=== PATIENT | male | born 1975 ===

== ENCOUNTER 2018-11-20 12:20 | Day surgery (SDC) | payer OTHER ==
[~2018-11-20 12:20] MED LIST: AMITRIPTYLINE H75 MG PO; LAMICTAL200 MG PO; OMEPRAZOLE20 MG PO
--- NOTE | 2018-11-20 14:45 | NUR ---
11/20/18 1444 Sandhya Rodríguez 1441 PATIENT ARRIVES TO PACU AWAKE, DENIES PAIN OR NAUSEA. ROOM AIR SATS >95%.
--- NOTE | 2018-11-22 16:41 | OR ---
[facility] [address] [place], [place] [address] Signed DATE OF OPERATION: 11/20/2018 SURGEON: Adam Hinton MD PREOPERATIVE DIAGNOSIS: Gastroesophageal reflux with history of White esophagus, surveillance upper endoscopy. POSTOPERATIVE DIAGNOSES: 1. Ulcerative distal esophagitis, some changes consistent with White esophagus. 2. Poor flap valve, hiatal hernia. PROCEDURE: Esophagogastroduodenoscopy with biopsy. ANESTHESIA: Intravenous sedation, fentanyl 100 mcg, Versed 5 mg. INDICATION: This 43-year-old white man is a prisoner at [facility] and a patient of GEORGE Alfonso. He is known to have gastroesophageal reflux problems, which were well managed from symptom standpoint with omeprazole 20 mg daily. He is also known to have White's esophagus. He is referred for upper endoscopy to assess for surveillance for his White's esophagus in particular to assess for dysplasia and so on. He understands the risks of upper endoscopy including but not limited to bleeding, infection, and perforation. FINDINGS: There was definite distal esophagitis. It appeared to be ulcerative esophagitis. There were some changes suggestive of White's esophagus, but it was not florid and certainly no sign of associated stricture or neoplasm. There was some antral gastritis and duodenitis even. CLOtest was -15 minutes postprocedure. Biopsies were obtained of the esophagus and elsewhere. DESCRIPTION OF PROCEDURE: The patient was brought to the endoscopy suite, given topical lidocaine spray hypopharyngeal anesthesia and placed in lateral decubitus position. Intravenous sedation was induced with fentanyl and Versed. A bite block was placed. An Olympus video upper endoscope was passed in the hypopharynx. The vocal cords appeared normal. Scope was advanced to the esophagus without problem. Esophagus looked normal except in the distal portion where there was what appeared to be linear ulcerations and some Electronically Signed By: ADAM HINTON MD 11/22/18 1641 PATIENT NAME: ASHA BALDERRAMA OPERATIVE REPORT DATE OF : 79 REPORT #: [id number] PHYSICIAN: ADAM HINTON MD PCP: ISMAEL RIVERA REPORT IS CONFIDENTIAL AND NOT TO BE RELEASED WITHOUT AUTHORIZATION [facility] [address] [place], [place] [address] Signed mucosal changes suggestive of White's esophagus. The scope was passed in the stomach, which is inflated with air. Rugal folds appeared normal. There was some antral gastritis. The pylorus was normal. Scope was passed into the duodenum. Duodenitis was noted of the bulbar portion, but no sign of ulceration. Biopsies were obtained. The 2nd portion appeared reasonably normal. Scope was withdrawn and biopsies taken of the antrum for both KIARA and pathologic testing. Retroflexed view was undertaken showing a completely effaced flap valve and easy examination of the distal esophagus through retroflexed view. The scope was straightened and withdrawn. A biopsy was taken of the distal esophageal mucosa to assess for White epithelium and dysplasia. Withdrawal of scope to the midesophagus allowed for midesophageal biopsies. The scope was carefully withdrawn and ultimately removed. The patient was taken to recovery room in good condition. CONCLUDING DIAGNOSIS: Hiatal hernia with poor flap valve and chronic esophagitis, symptomatically controlled with PPI medication. Possible White's epithelium (biopsied). PLAN: Recommend continued use of Prilosec 20 mg daily. We will see him back in the correction clinic on my next visit and review his pathology reports in outlining plan for surveillance as needed. MD SAMIA Olivares/ANANTHL /[id number] cc: GEORGE Cardenas Copies: ISMAEL RIVERA ~ Electronically Signed By: ADAM HINTON MD 11/22/18 1641 PATIENT NAME: ASHA BALDERRAMA OPERATIVE REPORT DATE OF : 79 REPORT #: [id number] PHYSICIAN: ADAM HINTON MD PCP: ISMAEL RIVERA REPORT IS CONFIDENTIAL AND NOT TO BE RELEASED WITHOUT AUTHORIZATION
--- NOTE | 2018-11-25 10:11 | PATH ---
[facility] [address] [place], [place] [address] Signed SPECIMEN(S): A DUODENAL BIOPSY SPECIMEN(S): B ANTRUM/PYLORUS BIOPSY SPECIMEN(S): C LOWER ESOPHAGEAL BIOPSY SPECIMEN(S): D MID ESOPHAGEAL BIOPSY SPECIMEN SOURCE: A. DUODENAL BIOPSY B. ANTRUM/PYLORUS BIOPSY C. LOWER ESOPHAGEAL BIOPSY D. MID ESOPHAGEAL BIOPSY CLINICAL HISTORY: GERD, White's. Postop: Significant esophagitis,, White's, hiatal hernia MICROSCOPIC DESCRIPTION: Histologic sections of all submitted blocks are examined by light microscopy. These findings, together with the gross examination, support the pathologic diagnosis. FINAL PATHOLOGIC DIAGNOSIS: A. Duodenum, biopsy: - Duodenal mucosa with no histopathologic abnormality. - Normal villous architecture is present. B. Stomach, antrum/pylorus, biopsy: - Oxyntic and antral mucosa with no histopathologic abnormality. - No metaplasia, significant inflammation, or dysplasia identified. - No Helicobacter organisms seen on HE stain. C. Esophagus, lower, biopsy: - White's esophagus. - Squamous epithelium with reactive epithelial changes, consistent with reflux esophagitis. D. Esophagus, mid, biopsy: - Squamous mucosa with mild reactive changes. COMMENT: C) Sections of the lower esophageal biopsy demonstrate fragments of glandular mucosa with focal intestinal metaplasia. No dysplasia or malignancy is seen in any of the specimens. NAL: :cml:C2NR GROSS DESCRIPTION: Four specimens are received in four containers, labeled "RC." PATIENT NAME: ASHA BALDERRAMA PATHOLOGY DATE OF : 79 REPORT #: [id number] PHYSICIAN: HILARY RICH PCP: ISMAEL RIVERA REPORT IS CONFIDENTIAL AND NOT TO BE RELEASED WITHOUT AUTHORIZATION [facility] [address] [place], [place] [address] Signed A. The specimen, labeled "RC, duodenal biopsy," is received in formalin and consists of two reynoso-white soft tissue fragments ranging from 0.3-0.4 cm in greatest dimension. The specimen is entirely submitted in cassette (A1). B. The specimen, labeled "RC, antrum/pylorus biopsy," is received in formalin and consists of two reynoso-white soft tissue fragments ranging from 0.3-0.4 cm in greatest dimension. The specimen is entirely submitted in cassette (B1). C. The specimen, labeled "RC, lower esophagus biopsy," is received in formalin and consists of six reynoso-white soft tissue fragments ranging from 0.2-0.3 cm in greatest dimension. The specimen is entirely submitted in cassette (C1). D. The specimen, labeled "RC, mid esophagus biopsy," is received in formalin and consists of two reynoso-white soft tissue fragments ranging from 0.2-0.3 cm in greatest dimension. The specimen is entirely submitted in cassette (D1). AR (under the direct supervision of a pathologist) The Gross Description was prepared using a voice recognition system. The report was reviewed for accuracy; however, sound-alike word errors, addition and/or deletions may occur. If there is any question about this report, please contact Client Services. PERFORMING LABORATORY: The technical component was performed by [facility], [address] [place] [id number] ([employer]otor[employer] Operator: Anyi Clemente MD; CLIA# [id number]). Professional interpretation was performed by [facility], [facility], later [facility], [address] [place] [id number] (CLIA# [id number]). Diagnostician: Greta Felix MD Pathologist Electronically Signed 11/25/2018 Copies: ~ PATIENT NAME: ASHA BALDERRAMA PATHOLOGY DATE OF : 79 REPORT #: [id number] PHYSICIAN: HILARY RICH PCP: ISMAEL RIVERA REPORT IS CONFIDENTIAL AND NOT TO BE RELEASED WITHOUT AUTHORIZATION
== END 2018-11-20 15:05 | disposition home or self-care (01) ==
LOC: OPS 12:20 → DS 13:00 → OPS 13:00
PROVIDERS: Surgery
PROC: 0DB78ZX Excision of Stomach, Pylorus, Via Natural or Artificial Opening Endoscopic, Diagnostic (ICD-10-PCS; 2018-11-20)
PROC: 0DB28ZX Excision of Middle Esophagus, Via Natural or Artificial Opening Endoscopic, Diagnostic (ICD-10-PCS; 2018-11-20)
PROC: 0DB38ZX Excision of Lower Esophagus, Via Natural or Artificial Opening Endoscopic, Diagnostic (ICD-10-PCS; 2018-11-20)
PROC: 0DB98ZX Excision of Duodenum, Via Natural or Artificial Opening Endoscopic, Diagnostic (ICD-10-PCS; principal; 2018-11-20 13:00)
DX: K22.70 Barrett's esophagus without dysplasia (principal); K22.10 Ulcer of esophagus without bleeding; K29.70 Gastritis, unspecified, without bleeding; K29.80 Duodenitis without bleeding; K44.9 Diaphragmatic hernia without obstruction or gangrene; K21.9 Gastro-esophageal reflux disease without esophagitis; F41.8 Other specified anxiety disorders; G47.30 Sleep apnea, unspecified; Z79.899 Other long term (current) drug therapy
CPT/HCPCS: G0500; J2250; J3010; J7120